=== PATIENT | male | born 1950 | race Caucasian/White ===

== ENCOUNTER 2017-11-12 14:44 | Outpatient (CLI) | payer MEDICARE, OTHER ==
[2013-09-14 22:15] VITALS: BP 129/78
[2017-11-12 15:12] LABS: BASOPHILS % 1.2 (0.0-1.5); EOSINOPHILS % 2.2 % (0.0-6.8); MEAN CORPUSCULAR HEMOGLOBIN 32.4 pg (28.0-34.0); MEAN CORPUSCULAR VOLUME 92.8 fl (80.0-100.0); MONOCYTES % 4.5 % (0.0-11.0); NEUTROPHILS # 4.8 # k/uL (1.4-7.7)
[2017-11-12 15:44] LABS: eGFR (African) > 60; eGFR (Non-African) > 60
== END 2017-11-12 14:46 ==
LOC: LAB 14:44
PROVIDERS: ATTEND Physician Assistant
DX: N40.0 Benign prostatic hyperplasia without lower urinary tract symptoms (principal); R53.83 Other fatigue; R81 Glycosuria
CPT/HCPCS: 36415; 80053; 82607; 83036; 84439; 84443; 84481; 85025; 87086; G0103